=== PATIENT | female | born 1995 | race Caucasian/White ===

== ENCOUNTER 2022-08-13 21:28 | Emergency (ER) | payer OTHER, SELFPAY ==
[2022-08-13 21:30] VITALS: BP 115/76; PULSE 65; RESP 16; TEMP 36.2; O2SAT 100; BMI 19.2
--- NOTE | 2022-08-13 22:01 | ED_ITS ---
HPI - Allergic Reaction General Chief complaint: Allergic Reaction Stated complaint: Allergic reaction Time Seen by Provider: 08/13/22 21:50 Source: patient Mode of arrival: ambulatory History of Present Illness HPI narrative: 26-year-old female with known allergy to tree nuts was inadvertently provided a salad that had sliced all men's which she consumed approximately 1944. Patient since that time has taken 50 mg of Benadryl and her primary care provider has sent a prescription for EpiPen over to the pharmacy but instructed the patient to wait in the parking lot of the emergency room to ensure that she did not feel any concerning symptoms. However, patient states that she felt like the back of her throat was a little scratchy and so came inside to be further evaluated. Related Data Allergies Allergy/AdvReac Type Severity Reaction Status Date / Time Unable to Assess Allergy Verified 08/13/22 21:50 Review of Systems Review of Systems: Pertinent positives and negatives as stated in HPI. PMFSH Past Medical History Source: nursing notes reviewed Social History Social History Advance Directives: No Advance Directives Information Provided: No Physical Exam ED Vital Signs: Vital Signs - 24 hr 08/13/22 21:30 Temperature 97.2 F Pulse Rate 65 Respiratory Rate 16 Blood Pressure 115/76 Pulse Oximetry 100 Oxygen Delivery Method Room Air BMI result Body Mass Index 19.2 VITAL SIGNS: Reviewed. GENERAL: Well developed, well nourished, in no acute distress. HEAD: Normocephalic/atraumatic EYES: PERRLA, EOMI EARS: Ext canals without abnormality OROPHARYNX: no oral lesions noted, posterior pharynx clear, no lip/tongue/facial swelling NECK: Supple, no adenopathy LUNGS: Normal breath sounds, no stridor/wheeze/rhonchi/rales, no tachypnea. SpO2<100> CARDIOVASCULAR: Regular rate and rhythm without noted murmurs ABDOMEN: Soft, non-tender, non-distended with bowel sounds. MUSCULOSKELETAL: No tenderness, deformities, or effusions noted on gross inspection. EXTREMITIES: No cyanosis, clubbing or edema. SKIN: Inspection of the skin reveals no rashes NEUROLOGIC: Alert and oriented x 4. Strength and sensation to light touch were grossly intact x 4. Medications Administered Discontinued Medications Generic Name Dose Route Start Last Admin Trade Name Freq PRN Reason Stop Dose Admin Famotidine 20 mg 08/13/22 21:50 08/13/22 22:11 Famotidine/Pf 20 Mg/2 Ml Vial IVPUSH 08/13/22 21:51 20 mg ONCE ONE Administration Methylprednisolone Sodium Succinate 125 mg 08/13/22 21:50 08/13/22 22:11 Methylprednisolone Sod Succ 125 Mg/2 Ml Vial IVPUSH 08/13/22 21:51 125 mg ONCE ONE Administration Medical Decision Making Medical Decision Making MDM Narrative: 26-year-old female who presents after consuming sliced on men's and has a known allergy to tree nuts. She took 50 mg of Benadryl at 20:00. Will observe for another 1-2 hours on the dice table person and provide 20 mg of Pepcid and 125 mg of Solu-Medrol. Patient is feeling much better and will be discharged home. She has EpiPen prescription available for poultry picker and she understands that she needs to obtain that prior to going home. Differential Diagnosis Differential Diagnoses: The differential diagnosis associated with the presentation includes Angioedema/anaphylaxis Critical Care Time Critical Care Time Critical Care Time: Yes Total Critical Care Time: 30 Attestation: I personally attest to this time spent taking care of the patient. Discharge Plan Discharge Clinical Impression: Allergic reaction, [place] allergy Patient Disposition: Home, Self-Care Instructions: Food Allergy (ED), General Allergic Reaction (ED) Additional Instructions: Please poultry picker your EpiPen prescription prior to going home after your discharged from here. Return to the ER if you develop any acute worsening shortness of breath, facial/lip/tongue swelling.
[2022-08-13] MEDS: Famotidine/PF 20 MG/2 ML VIAL IVPUSH (22:11)
[2022-08-13] MEDS: methylPREDNISolone Sod Succ 125 MG/2 ML VIAL IVPUSH (22:11)
--- NOTE | 2022-08-14 00:04 | PC.NURSE ---
IV line removed. Pt tolerated well. Discharge instructions reviewed with pt. Pt verbalizes understanding.
== END 2022-08-14 00:05 | disposition home or self-care (01) ==
PROVIDERS: Emergency Provider Student in an Organized Health Care Education/Training Program
DX: L50.0 Allergic urticaria (principal)
CPT/HCPCS: 96374; 96375; 99283; 99284; J2930